=== PATIENT | female | born 1960 | race Caucasian/White ===

== ENCOUNTER 2022-02-04 13:59 | Emergency (ER) | payer MEDICARE, MEDICAID ==
[~2022-02-04] VITALS: Ht 167.6 cm; Wt 84.1 kg
[2022-02-04 14:14] VITALS: BP 119/76
[2022-02-04] MEDS ORDERED: ibuprofen 200mg tablet PO ONE (16:05)
== END 2022-02-04 16:48 | disposition home health service (06) ==
LOC: ER 13:59
DX: S63.502A Unspecified sprain of left wrist, initial encounter (principal); M25.532 Pain in left wrist; Z86.69 Personal history of other diseases of the nervous system and sense organs; X58.XXXA Exposure to other specified factors, initial encounter; Y93.89 Activity, other specified; Y92.89 Other specified places as the place of occurrence of the external cause; Y99.8 Other external cause status
CPT/HCPCS: 73100; 99284; A6449

== ENCOUNTER 2022-09-26 20:12 | Emergency (ER) | payer MEDICARE, MEDICAID ==
[~2022-09-26] VITALS: Ht 165.1 cm; Wt 69.8 kg
[2022-09-26 23:57] VITALS: BP 142/62
== END 2022-09-26 23:58 | disposition home or self-care (01) ==
LOC: ER 20:13
DX: S80.11XA Contusion of right lower leg, initial encounter (principal); Z88.6 Allergy status to analgesic agent; W18.39XA Other fall on same level, initial encounter; Y93.89 Activity, other specified; Y92.89 Other specified places as the place of occurrence of the external cause; Y99.8 Other external cause status
CPT/HCPCS: 99282; 99284